=== PATIENT | male | born 1955 | race Caucasian/White ===

== ENCOUNTER → 2022-08-04 15:09 | Outpatient (BNVA) | payer MEDICARE, SELFPAY | PROVIDERS: Family Provider Nurse Practitioner Family; PCP Family Medicine; Visit Provider Surgery | DX: R19.5 Other fecal abnormalities (principal); K42.9 Umbilical hernia without obstruction or gangrene | CPT/HCPCS: 99203 ==

== ENCOUNTER 2022-11-03 06:55 | Day surgery (SDC) | payer MEDICARE, SELFPAY ==
[2022-11-01 14:50] VITALS: BMI 25.5
[2022-11-03 07:07] VITALS: BP 146/82; PULSE 73; RESP 18; TEMP 36.3; O2SAT 93
[2022-11-03] MEDS: sodium chloride 0.9% 1,000 ML 30 ML IV (07:27)
--- NOTE | 2022-11-03 07:29 | ANES.PREANE2 ---
Pre-Anesthetic Assessment Height/Weight: Height 1.75 m Weight 78.471 kg Temp Pulse Resp BP Pulse Ox O2 Del Method 97.4 F L 73 18 146/82 93 Room Air 11/03/22 07:07 11/03/22 07:07 11/03/22 07:07 11/03/22 07:07 11/03/22 07:07 11/03/22 07:07 Operation Date: 11/03/22 08:00 Proposed Procedures p Colonoscopy 87442,R19.5(Not Applicable) - Jeffrey Leo DO Familial anesthetic complications: none Was Beta Shekhar taken within 24 hours: N/A Was Clonidine taken within 24 hours: N/A Last intake: Intake Last Liquid Date 11/02/22 Last Liquid Time 22:00 Last Solid Date 11/01/22 Last Solid Time 18:00 Social No alcohol Exam alert, oriented x 3, clear to auscultation bilaterally and regular rate & rhythm Airway Submandibular: within normal limits Cervical ROM: within normal limits Mallampati: Class III Dentition: chipped and full History/ROS No significant complaints Pulmonary None reported CV/HEM Congestive Heart Failure and Hypertension Pacemaker, EF is 20% per patient. Reports good activity tolerance able to cut hay and walk METS >4 None reported (Only one functional kidney) Hepatic None reported GI Umbilical Hernia Metabolic Diabetes Mellitus and Hyperlipidemia [facility] Osteoarthritis/DJD Neuropsych Depression Anesthetic Plan ASA status: 3 Anesthesia: MAC Risk of > 500 ml blood loss (7ml/kg in children): No Medications/Allergies Home Medications Medication Instructions Recorded Confirmed Last Taken Type ascorbate calcium (vitamin C) 500 500 mg PO DAILY 08/04/22 11/03/22 11/02/22 History mg tablet aspirin 81 mg tablet 81 mg PO DAILY 08/04/22 11/03/22 10/28/22 History bupropion HCl 200 mg tablet,12 hr 200 mg PO BID 08/04/22 11/03/22 11/02/22 History sustained-release calcium carbonate 200 mg calcium 200 mg PO ONCE 08/04/22 11/03/22 Unknown History (500 mg) chewable tablet (Antacid (calcium carbonate)) cholecalciferol (vitamin D3) 50 50 mcg PO DAILY 08/04/22 11/03/22 11/02/22 History mcg (2,000 unit) capsule finasteride 5 mg tablet 5 mg PO DAILY 08/04/22 11/03/22 11/02/22 History furosemide 80 mg tablet (Lasix) 80 mg PO DAILY 08/04/22 11/03/22 11/02/22 History garlic 1,000 mg capsule 1,000 mg PO DAILY 08/04/22 11/03/22 11/02/22 History glucosamine sulfate 1,000 mg tablet 1,000 mg PO ONCE 08/04/22 11/03/22 11/02/22 History hydralazine 25 mg tablet 25 mg PO Q12H 08/04/22 11/03/22 11/02/22 History isosorbide dinitrate 30 mg tablet 30 mg PO ONCE 08/04/22 11/03/22 11/02/22 History latanoprost 0.005 % eye drops 1 drp ophthalmic (eye) DAILY 08/04/22 11/03/22 11/02/22 History metformin 500 mg tablet 1,000 mg PO BID 08/04/22 11/03/22 11/02/22 History metoprolol tartrate 50 mg tablet 50 mg PO DAILY 08/04/22 11/03/22 11/02/22 History niacin 100 mg tablet 100 mg PO DAILY 08/04/22 11/03/22 11/02/22 History polysaccharide iron complex 150 mg 150 mg PO DAILY 08/04/22 11/03/22 11/02/22 History iron capsule (Ferrex) pravastatin 10 mg tablet 10 mg PO DAILY 08/04/22 11/03/22 11/02/22 History prednisolone acetate (PF) 1 % eye 1 drp ophthalmic (eye) TID 08/04/22 11/03/22 11/02/22 History drops,suspension tamsulosin 0.4 mg capsule (Flomax) 0.4 mg PO DAILY 08/04/22 11/03/22 11/02/22 History timolol 0.5 % eye drops 1 drp ophthalmic (eye) DAILY 08/04/22 11/03/22 11/02/22 History leuprolide acetate (6 month) 45 mg 45 mg IM .EVERY 6MONTHS 11/03/22 11/03/22 10/25/22 History intramuscular syringe kit (Lupron Depot) Allergies Allergy/AdvReac Type Severity Reaction Status Date / Time No Known Allergies Allergy Unverified 11/03/22 07:17 Current Medications Generic Name Dose Route Start Last Admin Trade Name Freq PRN Reason Stop Dose Admin Sodium Chloride 1,000 mls @ 30 mls/hr 11/03/22 07:15 11/03/22 07:27 Sodium Chloride 0.9% IV 11/04/22 07:14 30 mls/hr .Q24H AN Administration PFSH Anesthesia Medical History (Updated 08/04/22 @ 16:25 by Jeffrey Leo DO) History of pacemaker Hx of cataract Surgical History (Updated 08/04/22 @ 16:25 by Jeffrey Leo DO) History of esophagogastroduodenoscopy (EGD) Family History Mother Cancer breast Father Cancer prostate Social History Smoking and tobacco status: never smoked Alcohol intake: current Alcohol intake frequency: holidays/special occasions only Data Anesthesia Cardiac Studies: No Data to Display
[2022-11-03 07:31] LABS: Glucose Point of Care 225 mg/dL (70-110)
--- NOTE | 2022-11-03 07:57 | PM.HP ---
Providers/Chief Complaint Primary Care Provider: Tramaine Feliz Chief Complaint: R19.5 History of Present Illness Marc Estrada is a 67 year old male Review of Systems General: Reports: 10 or more systems reviewed and unremarkable except in HPI and below Medications/Allergies Home Medications Medication Instructions Recorded Confirmed Last Taken Type ascorbate calcium (vitamin C) 500 500 mg PO DAILY 08/04/22 11/03/22 11/02/22 History mg tablet aspirin 81 mg tablet 81 mg PO DAILY 08/04/22 11/03/22 10/28/22 History bupropion HCl 200 mg tablet,12 hr 200 mg PO BID 08/04/22 11/03/22 11/02/22 History sustained-release calcium carbonate 200 mg calcium 200 mg PO ONCE 08/04/22 11/03/22 Unknown History (500 mg) chewable tablet (Antacid (calcium carbonate)) cholecalciferol (vitamin D3) 50 50 mcg PO DAILY 08/04/22 11/03/22 11/02/22 History mcg (2,000 unit) capsule finasteride 5 mg tablet 5 mg PO DAILY 08/04/22 11/03/22 11/02/22 History furosemide 80 mg tablet (Lasix) 80 mg PO DAILY 08/04/22 11/03/22 11/02/22 History garlic 1,000 mg capsule 1,000 mg PO DAILY 08/04/22 11/03/22 11/02/22 History glucosamine sulfate 1,000 mg tablet 1,000 mg PO ONCE 08/04/22 11/03/22 11/02/22 History hydralazine 25 mg tablet 25 mg PO Q12H 08/04/22 11/03/22 11/02/22 History isosorbide dinitrate 30 mg tablet 30 mg PO ONCE 08/04/22 11/03/22 11/02/22 History latanoprost 0.005 % eye drops 1 drp ophthalmic (eye) DAILY 08/04/22 11/03/22 11/02/22 History metformin 500 mg tablet 1,000 mg PO BID 08/04/22 11/03/22 11/02/22 History metoprolol tartrate 50 mg tablet 50 mg PO DAILY 08/04/22 11/03/22 11/02/22 History niacin 100 mg tablet 100 mg PO DAILY 08/04/22 11/03/22 11/02/22 History polysaccharide iron complex 150 mg 150 mg PO DAILY 08/04/22 11/03/22 11/02/22 History iron capsule (Ferrex) pravastatin 10 mg tablet 10 mg PO DAILY 08/04/22 11/03/22 11/02/22 History prednisolone acetate (PF) 1 % eye 1 drp ophthalmic (eye) TID 08/04/22 11/03/22 11/02/22 History drops,suspension tamsulosin 0.4 mg capsule (Flomax) 0.4 mg PO DAILY 08/04/22 11/03/22 11/02/22 History timolol 0.5 % eye drops 1 drp ophthalmic (eye) DAILY 08/04/22 11/03/22 11/02/22 History leuprolide acetate (6 month) 45 mg 45 mg IM .EVERY 6MONTHS 11/03/22 11/03/22 10/25/22 History intramuscular syringe kit (Lupron Depot) Allergies Allergy/AdvReac Type Severity Reaction Status Date / Time No Known Allergies Allergy Unverified 11/03/22 07:17 PFSH Acute PFSH: Medical History (Updated 11/03/22 @ 07:57 by Jeffrey Leo DO) History of pacemaker Hx of cataract Surgical History (Updated 08/04/22 @ 16:25 by Jeffrey Leo DO) History of esophagogastroduodenoscopy (EGD) Family History Mother Cancer breast Father Cancer prostate Social History Smoking and tobacco status: never smoked Alcohol intake: current Alcohol intake frequency: holidays/special occasions only Vitals/I&O/Wt Last Vital Signs Temp 97.4 F L 11/03/22 07:07 Pulse 73 11/03/22 07:07 Resp 18 11/03/22 07:07 BP 146/82 11/03/22 07:07 Pulse Ox 93 11/03/22 07:07 O2 Del Method Room Air 11/03/22 07:07 Weight last 48 hrs Weight 173 lb A&P Assessment and plan (1) Colon cancer screening: Plan Colonoscopy Attestations Medical Necessity Statement*: Home Coding Level of Care Code Acute Code for Chg Fwd Diagnoses Colon cancer screening Z12.11
[2022-11-03 08:34] LABS: Anion Gap 13.9 (5-19); Blood Urea Nitrogen 15 mg/dL (8-23); Calcium 10.1 mg/dL (8.5-10.5); Carbon Dioxide 28 mmol/L (22-29); Chloride 101 mmol/L (98-107); Glucose 226 mg/dL (65-115); Osmolality Calculated 294 mOsm/kg (285-295); Potassium 4.9 mmol/L (3.5-5.1); Sodium 138 mmol/L (136-145)
[2022-11-03 09:44] VITALS: BP 117/74; PULSE 62; RESP 16; TEMP 36.1; O2SAT 100
[2022-11-03 09:49] VITALS: BP 133/71; PULSE 61; RESP 16; O2SAT 100
[2022-11-03 09:59] VITALS: BP 116/70; PULSE 60; RESP 18; O2SAT 98
--- NOTE | 2022-11-03 16:36 | ANE.PACU2 ---
Inpatient post-anesthesia follow up: Airway intact: Yes Vital signs: Temperature 97.0 F Pulse Rate 60 Respiratory Rate 18 Blood Pressure 116/70 Pulse Oximetry 98 Oxygen Delivery Me thod Room Air Oxygen Flow Rate 3 Fraction of Inspir ed Oxygen Hydration adequate: Yes Nausea and vomiting: No Pain level: 2 Mental status: Baseline
== END 2022-11-03 10:18 | disposition home or self-care (01) ==
PROVIDERS: Student in an Organized Health Care Education/Training Program; PCP Family Medicine; Visit Provider Surgery
PROC: 0DJD8ZZ Inspection of Lower Intestinal Tract, Via Natural or Artificial Opening Endoscopic (ICD-10-PCS; CPT 45378; principal; 2022-11-03 08:00)
DX: R19.5 Other fecal abnormalities (principal); D12.0 Benign neoplasm of cecum; D12.5 Benign neoplasm of sigmoid colon; Z79.82 Long term (current) use of aspirin; Z95.0 Presence of cardiac pacemaker; I11.0 Hypertensive heart disease with heart failure; I50.9 Heart failure, unspecified; E11.9 Type 2 diabetes mellitus without complications; E78.5 Hyperlipidemia, unspecified; M19.90 Unspecified osteoarthritis, unspecified site; F32.A Depression, unspecified; K57.30 Diverticulosis of large intestine without perforation or abscess without bleeding
CPT/HCPCS: 36415; 36416; 45380; 45385; 80048; 82962; 88305; J2704; J7030

== ENCOUNTER → 2022-11-17 14:38 | Outpatient (BNVA) | payer MEDICARE, SELFPAY | PROVIDERS: PCP Family Medicine; Visit Provider Surgery | DX: Z09 Encounter for follow-up examination after completed treatment for conditions other than malignant neoplasm (principal) | CPT/HCPCS: 99213 ==